=== PATIENT | female | born 1960 | race Caucasian/White ===

== ENCOUNTER 2022-11-01 16:40 | Inpatient (IN) | payer OTHER ==
[~2022-11-01] VITALS: Ht 177.8 cm; Wt 58.1 kg
[2022-11-01] MEDS ORDERED: ONDANSETRON 4 MG/2 ML VIAL IV ONE (17:15)
[2022-11-01] MEDS ORDERED: IV NORMAL SALINE 1000 ML BAG IV ONE (17:15)
[2022-11-01] MEDS ORDERED: MORPHINE SULFATE 2 MG/1 ML DISP.SYRIN IV ONE (17:15)
[2022-11-01] MEDS ORDERED: ONDANSETRON 4 MG/2 ML VIAL ONE (17:35)
[2022-11-01] MEDS ORDERED: MORPHINE SULFATE 4 MG/1 ML DISP.SYRIN ONE (17:35)
[2022-11-01 17:38] LABS: HEMATOCRIT 36.6 % (31.2-41.9); MEAN CORPUSCULAR HEMOGLOBIN 31.7 uug (24.7-32.8); MEAN CORPUSCULAR VOLUME 94.3 fL (75.5-95.3); PLATELET COUNT (AUTO) 250 K/uL (179-408)
[2022-11-01 17:46] LABS: CREATININE 0.6 mg/dL (0.6-1.3); POTASSIUM 3.4 mmol/L (3.5-5.1)
--- NOTE | 2022-11-01 17:46 | NUR ---
PT IS IN ROOM #1A. DR MAO EVALUATED THE PT.
--- NOTE | 2022-11-01 20:37 | NUR ---
Called orthopedic vp information technology Dr. Charles waiting vp information technology back.
--- NOTE | 2022-11-01 20:58 | NUR ---
Dr. Mclaughlin on panel call with Kelly HAMPTON. Pending admission.
--- NOTE | 2022-11-01 21:00 | NUR ---
Upon skin assessment noted dry skin with scabbing. Per patient, she has hx of eczema.
--- NOTE | 2022-11-01 22:18 | NUR ---
Called Dr. Charles for ortho consult, awaiting call back.
[2022-11-01] MEDS ORDERED: HYDROCODONE/APAP 5-325MG TABLET PO PRN (22:30)
[2022-11-01] MEDS ORDERED: REMEDY ESSENTIAL ZINC PASTE 113 GM TP PRN (22:30)
[2022-11-01] MEDS ORDERED: ONDANSETRON 4 MG/2 ML VIAL IV PRN (22:30)
[2022-11-01] MEDS ORDERED: MAGNESIUM HYDROXIDE 30 ML LIQUID UDC PO PRN (22:30)
[2022-11-01] MEDS ORDERED: IV D5 1/2 NS 1000 ML 1,000 ML IV PRN (22:30)
--- NOTE | 2022-11-01 22:58 | NUR ---
Called Dr. Charles for ortho consult, awaiting call back.
[2022-11-02] VITALS (11 sets, daily range): BP systolic 104–143; BP diastolic 38–59
--- NOTE | 2022-11-02 00:41 | NUR ---
Report given to Bruno GOOD.
--- NOTE | 2022-11-02 00:53 | NUR ---
Patient had large void in bedpan
--- NOTE | 2022-11-02 01:08 | NUR ---
Dr. Mclaughlin speaking with Dr. Charles for ortho consult.
--- NOTE | 2022-11-02 01:11 | NUR ---
Patient taken to third floor room 305 via gurney with personal belongings. Patient in stable condition, no signs of distress. Will RN aware of patients arrival.
--- NOTE | 2022-11-02 01:15 | NUR ---
Admitted patient in med surg floor under the care of Ale Mendoza [employer], patient alert oriented, no sob no chest pain, s/p fall at work place, dx of right hip Fx. For ortho consult, patient has right hip bruise from the fall, and left major skin disorder (ezcema) per patient. complain 9/10 pain, will medicate for pain. cont to monitor.
[2022-11-02] MEDS: MORPHINE SULFATE 2 MG/1 ML DISP.SYRIN IV PRN ×2 (01:29→09:48)
[2022-11-02] MEDS ORDERED: CEFTRIAXONE 1 G VIAL ONE (01:54)
[2022-11-02] MEDS ORDERED: CEFTRIAXONE /D5W 50ML IVPB **ER PYXIS IV ONE (01:55)
[2022-11-02] MEDS: CEFTRIAXONE 1 G in IV DEXTROSE 5% 50 ML IV SCH ×2 (02:01→20:52)
[2022-11-02 05:52] LABS: HEMATOCRIT 31.9 % (31.2-41.9); MEAN CORPUSCULAR HEMOGLOBIN 32.5 uug (24.7-32.8); MEAN CORPUSCULAR VOLUME 95.7 fL (75.5-95.3); PLATELET COUNT (AUTO) 216 K/uL (179-408)
[2022-11-02 06:01] LABS: CARBON DIOXIDE 28 mmol/L (21-32); CHLORIDE 108 mmol/L (98-107); CREATININE 0.4 mg/dL (0.6-1.3); GLUCOSE 104 mg/dL (74-106); MAGNESIUM 1.8 mg/dL (1.8-2.4); PHOSPHOROUS 2.7 mg/dL (2.5-4.9); POTASSIUM 3.2 mmol/L (3.5-5.1); UREA NITROGEN, BLOOD 8 mg/dL (7-18)
[2022-11-02 06:22] LABS: THYROID STIMULATING HORMONE 2.122 mIU/mL (0.358-3.740)
[2022-11-02] MEDS: PANTOPRAZOLE SODIUM 40 MG VIAL IV SCH (09:37)
[2022-11-02] MEDS ORDERED: POTASSIUM CHLORIDE 50 ML IV SCH (12:30)
[2022-11-02] MEDS ORDERED: VANCOMYCIN 1000 MG VIAL ONE (12:38)
[2022-11-02] MEDS ORDERED: POTASSIUM CHLORIDE 20 MEQ TAB.PRT.SR PO ONE (13:00)
[2022-11-02] MEDS ORDERED: TRANEXAMIC ACID 1,000 MG/10 ML VIAL ONE ×2 (13:21→14:02)
[2022-11-02] MEDS ORDERED: HYDROMORPHONE 2 MG/1 ML DISP.SYRIN ONE (13:29)
[2022-11-02] MEDS ORDERED: BUPIVACAINE PF 0.5% 30 ML VIAL ONE (13:29)
[2022-11-02] MEDS ORDERED: KETAMINE HCL 200 MG/20 ML VIAL ONE (13:29)
[2022-11-02] MEDS ORDERED: FAMOTIDINE. 20 MG/2 ML VIAL IV ONE (13:30)
[2022-11-02] MEDS ORDERED: ROCURONIUM BROMIDE 50 MG/5 ML VIAL ONE (13:30)
[2022-11-02] MEDS ORDERED: POTASSIUM CHLORIDE 10 MEQ/50 ML ONE (13:47)
[2022-11-02] MEDS ORDERED: PIGGYBACK ONE (13:47)
[2022-11-02] MEDS ORDERED: CEFAZOLIN 1 G VIAL ONE (13:47)
[2022-11-02] MEDS ORDERED: GLYCOPYRROLATE 0.2 MG/ML VIAL ONE (13:47)
[2022-11-02] MEDS ORDERED: ONDANSETRON 4 MG/2 ML VIAL ONE (13:47)
[2022-11-02] MEDS ORDERED: KETOROLAC TROMETHAMINE 30 MG INJ ONE (13:47)
[2022-11-02] MEDS ORDERED: DEXAMETHASONE SOD PHOSPHATE 4 MG INJ ONE (13:47)
[2022-11-02] MEDS ORDERED: PROPOFOL 200 MG/20 ML BOTTLE ONE (13:47)
[2022-11-02] MEDS ORDERED: LIDOCAINE-MPF 2% 5 ML VIAL ONE (13:47)
[2022-11-02] MEDS ORDERED: MAGNESIUM SULFATE/D5W 100 ML ONE ×2 (13:52→14:02)
[2022-11-02] MEDS ORDERED: MORPHINE SULFATE 4 MG/1 ML DISP.SYRIN IV PRN (16:15)
[2022-11-02] MEDS: POTASSIUM CHLORIDE 20 MEQ in IV D5 1/2 NS 1000 ML 1,000 ML IV PRN (18:32)
--- NOTE | 2022-11-02 20:13 | NUR ---
RN RECEIVED REPORT FROM FLORENTINO BERGMAN, FEATHER CURLING MACHINE OPERATOR. PATIENT IS ALERT AND ORIENTED X4 AND VITAL SIGNS STABLE. PATIENT TOLERATES PO MEDICATIONS AND DIET WELL. PATIENT HAD COMPLAINT OF PAIN. RN GAVE PAIN MEDICATIONS ORDERED. PATIENT AWARE OF SURGERY. CONSENT FORM SIGNED PRIOR TO SURGERY. RN GAVE REPORT TO FLORENTINO MINA, IN SURGERY. ALL QUESTIONS ANSWERED. RN STARTED POTASSIUM CHLORIDE ON THE FLOOR AND CONTINUED THROUGH SURGERY. PATIENT TRANSFERRED TO SURGERY. PATIENT RETURNED FROM PACU. RN RECEIVED REPORT FROM FLORENTINO LIZARRAGA, RECOVERY. PATIENT VITAL SIGNS STABLE. PATIENT IS ALERT AND ORIENTED X4. FOLLOW MD ORDERS RECEIVED. PROVIDED ICE CHIPS. PATIENT TOLERATES WELL. PROVIDED PO FLUIDS. TOLERATES WELL. NO N/V. PATIENT ATE DINNER REGULAR DIET. TOLERATES WELL. NO N/V. VITALS SIGNS TAKEN POLICY. PATIENT'S FAMILY VISITED. NO ACUTE DISTRESS NOTED. PATIENT EXPRESSED 8/10 PAIN. RN GAVE PAIN MEDICATIONS ORDERED. ALL NEEDS MET AT THIS TIME. RN ENDORSED CONTINUATION OF CARE TO FLORENTINO CAAL, FOR THE CONTINUATION OF CARE.
--- NOTE | 2022-11-02 23:13 | NUR ---
Patient is S/P right intramedullary nailing anamaria and dressing to site intact no sign of bleeding. Patient appears to be comfortable no c/o pain at this time.
[2022-11-03] MEDS: HYDROCODONE/APAP 10-325 MG TABLET PO PRN ×5 (03:12→20:37)
--- NOTE | 2022-11-03 03:15 | NUR ---
Patient medicated x 1 this shift for c/o right hip pain. Taft 10/325mg tablet given as per order with good effect.
[2022-11-03 04:00] VITALS: BP 101/57
[2022-11-03] MEDS: PANTOPRAZOLE SODIUM 40 MG VIAL IV SCH (08:47)
[2022-11-03] MEDS: POTASSIUM CHLORIDE 20 MEQ in IV D5 1/2 NS 1000 ML 1,000 ML IV PRN (08:58)
[2022-11-03 12:00] VITALS: BP 108/46
[2022-11-03 14:53] VITALS: BP 104/50
[2022-11-03] MEDS: ACETAMINOPHEN 325 MG TABLET PO PRN (16:10)
[2022-11-03 20:00] VITALS: BP 101/37
--- NOTE | 2022-11-03 20:00 | NUR ---
Received patient in bed, alert oriented, continent uses bed phelan for bladder elimination, right hip dressing intact, no bleeding, with swelling, patient right leg warm to touch, still has pain on surgical site, will medicate for pain as ordered, no sob no chest pain, no coughing. cont to monitor.
[2022-11-03] MEDS: CEFTRIAXONE 1 G in IV DEXTROSE 5% 50 ML IV SCH (20:42)
[2022-11-04] MEDS: POTASSIUM CHLORIDE 20 MEQ in IV D5 1/2 NS 1000 ML 1,000 ML IV PRN (01:47)
[2022-11-04] MEDS: ACETAMINOPHEN 325 MG TABLET PO PRN ×2 (01:48→08:58)
--- NOTE | 2022-11-04 03:25 | NUR ---
Patient asleep but arousable, pain meds given was effective, no further complain of pain, cont to monitor.
[2022-11-04 06:29] VITALS: BP 103/41
[2022-11-04] MEDS ORDERED: PANTOPRAZOLE SODIUM 40 MG TABLET.DR PO SCH (07:00)
[2022-11-04 07:03] LABS: MEAN CORPUSCULAR HEMOGLOBIN 32.2 uug (24.7-32.8); PLATELET COUNT (AUTO) 238 K/uL (179-408)
[2022-11-04 07:14] LABS: CREATININE 0.5 mg/dL (0.6-1.3); MAGNESIUM 1.9 mg/dL (1.8-2.4); PHOSPHOROUS 3.5 mg/dL (2.5-4.9)
--- NOTE | 2022-11-04 08:58 | NUR ---
AWAKE ALERT AND ORIENTED STATED HAS A HEADACHE MEDICATED ORDERED ON ROOM AIR WITH SATS AT 97-98 PERCENT AT THIS TIME RIGHT HIP S/P IM NAILING IS INTACT WITH NO DRAINAGE CALL LIGHT AND PERSONAL BELONGINGS ARE WITHIN EASY REACH AT THIS TIME WILL CONTINUE TO OBSERVE.
[2022-11-04 11:30] VITALS: BP 118/49
[2022-11-04] MEDS: HYDROCODONE/APAP 10-325 MG TABLET PO PRN ×3 (11:37→23:58)
--- NOTE | 2022-11-04 11:37 | NUR ---
PATIENT IS ALERT AND ORIENTED ON ROOM AIR WITH NO SHORTNESS OF BREATH AT THIS TIME STATED C/O RIGHT HIP PAIN MEDICATED WITH NORCO ORDERED RIGHT HIP INCISION IS INTACT WITH NO DRAINAGE AT THIS TIME MADE COMFORTABLE CALL LIGHT AND AND PERSONAL BELONGINGS ARE WITHIN EASY REACH WILL CONTINUE TO OBSERVE.
--- NOTE | 2022-11-04 12:51 | NUR ---
D/C PLANNING TODAY TO ACUTE REHAB UNIT TO CONTINUE WITH PHYSICAL THERAPY ORDERED.
[2022-11-04 15:43] VITALS: BP 119/41
--- NOTE | 2022-11-04 18:17 | NUR ---
STILL NO DISCHARGE ORDERS NOTED BUT PER ROBERT PATIENT IS ALREADY APPROAVED SO I CALLED AND SENT A MESSAGE TO DR LEEANN ESPARZA RE NEED DISCHARGE ORDER NO ORDERS AT THIS TIME WILL ENDORSE.
[2022-11-04 20:00] VITALS: BP 116/47
[2022-11-04] MEDS ORDERED: PANT40TA49 PO (23:49)
[2022-11-04] MEDS ORDERED: MAGN400O6 PO (23:49)
[2022-11-04] MEDS ORDERED: HYDR-3980 PO (23:49)
[2022-11-04] MEDS ORDERED: ONDA4VIA23 IV (23:49)
[2022-11-05 04:00] VITALS: BP 122/41
== END 2022-11-05 00:28 | DRG 482 ==
LOC: ER 16:42 → MEDSURG3 21:55
PROVIDERS: ADMIT Registered Nurse; ATTEND Registered Nurse
PROC: 0QS636Z Reposition Right Upper Femur with Intramedullary Internal Fixation Device, Percutaneous Approach (ICD-10-PCS; principal; 2022-11-02)
DX: S72.141A Displaced intertrochanteric fracture of right femur, initial encounter for closed fracture (principal); W01.0XXA Fall on same level from slipping, tripping and stumbling without subsequent striking against object, initial encounter; Y93.01 Activity, walking, marching and hiking; Y92.59 Other trade areas as the place of occurrence of the external cause; Y99.0 Civilian activity done for income or pay; F17.210 Nicotine dependence, cigarettes, uncomplicated; K59.00 Constipation, unspecified
CPT/HCPCS: 36415; 71045; 72170; 73502; 73503; 83735; 84100; 84443; 85025; 85730; 93005; 93307; A4649; A4663; C1713; C9113; G0378; J0690; J0696; J1100; J1170; J1885; J2270; J2405; J3370; J3475; J3480; J3490; J7040

== ENCOUNTER 2022-11-05 00:33 | Inpatient (IN) | payer OTHER ==
[~2022-11-05] VITALS: Ht 177.8 cm; Wt 58.1 kg
--- NOTE | 2022-11-05 | NUR ---
Obtained discharge/transfer to ARU order from Dr Bennett at this time. Routine discharge/admission care done. Plan of care initiated.
[~2022-11-05 00:33] MED LIST: HYDR-3980 PO; MAGN400O6 PO; ONDA4VIA23 IV; PANT40TA49 PO
[2022-11-05 01:05] VITALS: BP 116/67
[2022-11-05 04:00] VITALS: BP 122/41
--- NOTE | 2022-11-05 07:16 | NUR ---
Slept well. No further complaint presented after admission to ARU. All needs attended and met. Continue care as planned.
[2022-11-05 07:56] VITALS: BP 119/69
[2022-11-05] MEDS ORDERED: HYDROCODONE/APAP 10-325 MG TABLET PO ONE (08:30)
[2022-11-05] MEDS: REMEDY ESSENTIAL ZINC PASTE 113 GM TOP SCH ×2 (09:20→20:12)
--- NOTE | 2022-11-05 12:54 | NUR ---
WOUND CARE CONSULT: PT DENIES NEED FOR SKIN ASSESSMENT. WILL SEE PRN.
[2022-11-05] MEDS: HYDROCODONE/APAP 10-325 MG TABLET PO PRN ×2 (15:42→20:12)
[2022-11-05 15:50] VITALS: BP 116/41
[2022-11-05 20:00] VITALS: BP 106/42
[2022-11-05] MEDS: DOCUSATE SODIUM 100 MG CAPSULE PO SCH (20:11)
[2022-11-06 05:34] VITALS: BP 110/52
[2022-11-06] MEDS: PANTOPRAZOLE SODIUM 40 MG TABLET.DR PO SCH (06:24)
[2022-11-06 08:00] VITALS: BP 107/36
[2022-11-06] MEDS: MULTIVITAMINS,THERAPEUTIC TABLET PO SCH (08:23)
[2022-11-06] MEDS: HYDROCODONE/APAP 10-325 MG TABLET PO PRN ×4 (08:23→23:20)
[2022-11-06] MEDS: REMEDY ESSENTIAL ZINC PASTE 113 GM TOP SCH ×2 (08:24→20:18)
--- NOTE | 2022-11-06 15:43 | NUR ---
INTERDISCIPLINARY TEAM CONFERENCE
[2022-11-06 15:45] VITALS: BP 112/45
--- NOTE | 2022-11-06 19:24 | NUR ---
PATIENT ALERT AND ORIENTED, VERBALIZES NEEDS AND FOLLOWS DIRECTIONS. OOB DURING SHIFT. SITTING AT BEDSIDE AND DOWN TO REHAB FOR PT/OT SKILLED SERVICES. PATIENT CALE. THERAPY WELL AND ACTIVELY ABLE TO PARTICIPATE IN THERAPY. CONTINENT OF BOTH AND WITH BRP, ASSISTED TO THE RESTROOM NEEDED. PATIENT EATING AND DRINKING WELL, NO C/O GI DISCOMFORT. MEDICATED PRN FOR PAIN BASED ON PAIN LEVEL NEEDS ORDERED BY MD WITH HELP. ASSIST NEEDED, NEEDS ANTICIPATED AND MET THROUGH OUT THE SHIFT. NO MAC FROM BASELINE, REPORT GIVEN TO NIGHT RELIEVING RN.
[2022-11-06 20:00] VITALS: BP 108/49
[2022-11-06] MEDS: DOCUSATE SODIUM 100 MG CAPSULE PO SCH (20:18)
[2022-11-07] MEDS: HYDROCODONE/APAP 10-325 MG TABLET PO PRN ×5 (03:59→22:56)
[2022-11-07 04:31] VITALS: BP 104/41
[2022-11-07] MEDS: PANTOPRAZOLE SODIUM 40 MG TABLET.DR PO SCH (06:03)
[2022-11-07 07:45] VITALS: BP 118/55
[2022-11-07] MEDS: MULTIVITAMINS,THERAPEUTIC TABLET PO SCH (08:04)
[2022-11-07] MEDS: REMEDY ESSENTIAL ZINC PASTE 113 GM TOP SCH ×2 (08:04→20:25)
--- NOTE | 2022-11-07 15:15 | NUR ---
dc orders received noted and carried out.dc heplock per orders,for rn report called the facility 3 times they pickup the phone and put it on hold no body ans after that ,per case specialist pt [facility] .pt left the facility via ambulances in stable condition Addendum: 11/07/22 at 1734 by NIEVES DONALDSON LVN wrong pt charting
--- NOTE | 2022-11-07 15:20 | NUR ---
pt is resting in her room .call light with in reach all the needs met at this time we will continue to monitor
[2022-11-07 15:56] VITALS: BP 109/49
[2022-11-07 20:00] VITALS: BP 121/38
[2022-11-07] MEDS: DOCUSATE SODIUM 100 MG CAPSULE PO SCH (20:20)
[2022-11-07] MEDS: MAGNESIUM HYDROXIDE 30 ML LIQUID UDC PO PRN (20:22)
[2022-11-08] VITALS: BP 94/42
--- NOTE | 2022-11-08 03:47 | NUR ---
AAOx4 S/P right hip IM nailing (11/02) by Dr Charles. Right hip dressing clean dry and intact. VSS Needs attended. Fall precautions maintained. Pain meds given as needed, with relief noted. No acute distress noted. Will monitor patient. Siderails up for safety.
[2022-11-08 04:00] VITALS: BP 103/48
[2022-11-08] MEDS: HYDROCODONE/APAP 10-325 MG TABLET PO PRN ×5 (05:39→23:27)
[2022-11-08] MEDS: PANTOPRAZOLE SODIUM 40 MG TABLET.DR PO SCH (06:03)
--- NOTE | 2022-11-08 08:56 | NUR ---
INDIVIDUALIZED PLAN OF CARE
[2022-11-08] MEDS: MULTIVITAMINS,THERAPEUTIC TABLET PO SCH (09:46)
[2022-11-08] MEDS: REMEDY ESSENTIAL ZINC PASTE 113 GM TOP SCH ×2 (09:46→20:26)
[2022-11-08] MEDS: MAGNESIUM HYDROXIDE 30 ML LIQUID UDC PO PRN (09:47)
[2022-11-08] MEDS ORDERED: BISACODYL 10 MG SUPP.RECT RC PRN (13:30)
--- NOTE | 2022-11-08 15:03 | NUR ---
INDIVIDUALIZED PLAN OF CARE
[2022-11-08 16:05] VITALS: BP 101/27
--- NOTE | 2022-11-08 19:31 | NUR ---
NSG:Pt received lying in bed. alert and oriented x4, S/P right hip IM nailing ON 11/02/[address] Charles. Right hip dressing c/d/i. no c/o pain or discomfort at this time. Fall precautions maintained. No acute distress noted. Will monitor patient. two Side rails up for safety. call light w/in reach.
[2022-11-08 20:00] VITALS: BP 116/53
--- NOTE | 2022-11-08 20:13 | NUR ---
RN RECEIVED REPORT FROM FLORENTINO PAGE, NOC SHIFT. PATIENT IS ALERT AND ORIENTED X4 AND VITAL SIGNS STABLE. PATIENT COMPLAINED OF PAIN. RN GAVE PAIN MEDICATIONS ORDERED. PATIENT TOLERATES PO MEDICATIONS AND DIET WELL. PATIENT PARTICIPATES WITH PHYSICAL AND OCCUPATIONAL THERAPY SCHEDULED. DRESSING CHANGED. PATIENT UNABLE TO MOVE HER BOWELS. RN GAVE MEDICATIONS ORDERED. PATIENT WAS ABLE TO MOVE HER BOWELS AFTER SUPPOSITORY INSERTION. NO ACUTE DISTRESS NOTED. ALL NEEDS MET AT THIS TIME. RN ENDORSED CONTINUATION OF CARE TO FLORENTINO MILTON, FOR THE CONTINUATION OF CARE.
[2022-11-08] MEDS: DOCUSATE SODIUM 100 MG CAPSULE PO SCH (20:26)
--- NOTE | 2022-11-09 01:40 | NUR ---
patient resting quietly in bed. call light w/in reach.
--- NOTE | 2022-11-09 03:47 | NUR ---
NSG: Remain calm and cooperative with meds and care. Right hip dressing clean dry and intact. VSS Needs attended. Fall precautions maintained. Pain meds given as needed, with relief noted. No acute distress noted.call light w/in reach
[2022-11-09 04:00] VITALS: BP 101/55
[2022-11-09] MEDS: HYDROCODONE/APAP 10-325 MG TABLET PO PRN ×5 (04:33→20:51)
[2022-11-09] MEDS: PANTOPRAZOLE SODIUM 40 MG TABLET.DR PO SCH (06:04)
[2022-11-09 07:02] LABS: HEMATOCRIT 33.2 % (31.2-41.9); MEAN CORPUSCULAR HEMOGLOBIN 32.4 uug (24.7-32.8); MEAN CORPUSCULAR VOLUME 94.5 fL (75.5-95.3); PLATELET COUNT (AUTO) 326 K/uL (179-408)
[2022-11-09 07:45] VITALS: BP 97/39
[2022-11-09] MEDS: REMEDY ESSENTIAL ZINC PASTE 113 GM TOP SCH ×2 (08:42→20:52)
[2022-11-09] MEDS: MULTIVITAMINS,THERAPEUTIC TABLET PO SCH (08:42)
[2022-11-09 09:47] LABS: CREATININE 0.6 mg/dL (0.6-1.3); POTASSIUM 3.9 mmol/L (3.5-5.1)
[2022-11-09 09:48] LABS: BILIRUBIN,TOTAL 0.4 mg/dL (0.2-1.0); MAGNESIUM 2.3 mg/dL (1.8-2.4); PHOSPHOROUS 4.2 mg/dL (2.5-4.9); TOTAL PROTEIN, SERUM 6.7 g/dL (6.4-8.2)
[2022-11-09] MEDS: GLUCERNA SHAKE 237 ML CAN PO SCH (13:42)
[2022-11-09 16:14] VITALS: BP 108/48
--- NOTE | 2022-11-09 19:48 | NUR ---
RN RECEIVED REPORT FROM FLORENTINO MILTON, NOC SHIFT. PATIENT IS ALERT AND ORIENTED X4 AND VITAL SIGNS STABLE. PATIENT COMPLAINED OF PAIN. RN GAVE PAIN MEDICATIONS ORDERED. PATIENT TOLERATES PO MEDICATIONS AND DIET WELL. PATIENT PARTICIPATES WITH PHYSICAL AND OCCUPATIONAL THERAPY SCHEDULED. RN ENCOURAGES PATIENT TO DRINK PRUNE JUICE TO HELP WITH REGULAR BOWEL MOVEMENTS. NO ACUTE DISTRESS NOTED. ALL NEEDS MET AT THIS TIME. CALL LIGHT WITHIN REACH. RN ENDORSED CONTINUATION OF CARE TO FLORENTINO WORLEY, FOR THE CONTINUATION OF CARE.
[2022-11-09 20:18] VITALS: BP 116/48
[2022-11-09] MEDS: DOCUSATE SODIUM 100 MG CAPSULE PO SCH (20:51)
[2022-11-10] MEDS: HYDROCODONE/APAP 10-325 MG TABLET PO PRN ×5 (01:07→19:57)
[2022-11-10] MEDS: PANTOPRAZOLE SODIUM 40 MG TABLET.DR PO SCH (06:27)
[2022-11-10] MEDS: MULTIVITAMINS,THERAPEUTIC TABLET PO SCH (08:14)
[2022-11-10] MEDS: GLUCERNA SHAKE 237 ML CAN PO SCH (08:15)
[2022-11-10] MEDS: REMEDY ESSENTIAL ZINC PASTE 113 GM TOP SCH ×2 (08:15→21:00)
[2022-11-10 08:46] VITALS: BP 98/43
[2022-11-10 12:00] VITALS: BP 116/65
[2022-11-10 20:00] VITALS: BP 103/40
[2022-11-10] MEDS: DOCUSATE SODIUM 100 MG CAPSULE PO SCH (21:00)
--- NOTE | 2022-11-10 21:00 | NUR ---
Patient refused Colace tonight, stating she does not need it despite explaining the risk and benefits.
[2022-11-11] MEDS: HYDROCODONE/APAP 10-325 MG TABLET PO PRN ×5 (00:13→19:50)
[2022-11-11 05:52] VITALS: BP 116/55
--- NOTE | 2022-11-11 05:58 | NUR ---
Shift End Report: Medicated 3x for pain the whole night. No further complaint presented after. All needs attended. Non-pharmaceutical techniques suggested to patient to relieve pain/discomforts like repositioning, deep breathing exercises and relaxation technique, able to return demonstration. Continue current rehab plan of care. In no apparent respiratory distress.
[2022-11-11] MEDS: PANTOPRAZOLE SODIUM 40 MG TABLET.DR PO SCH (06:24)
[2022-11-11 08:39] VITALS: BP 105/44
[2022-11-11] MEDS: MULTIVITAMINS,THERAPEUTIC TABLET PO SCH (08:43)
[2022-11-11] MEDS: GLUCERNA SHAKE 237 ML CAN PO SCH (08:46)
[2022-11-11] MEDS: REMEDY ESSENTIAL ZINC PASTE 113 GM TOP SCH ×2 (11:00→21:04)
[2022-11-11 15:34] VITALS: BP 119/45
[2022-11-11] MEDS: DOCUSATE SODIUM 100 MG CAPSULE PO SCH (19:50)
[2022-11-11 20:00] VITALS: BP 111/57
[2022-11-12] MEDS: HYDROCODONE/APAP 10-325 MG TABLET PO PRN ×5 (00:26→20:11)
[2022-11-12 04:00] VITALS: BP 104/37
[2022-11-12] MEDS: PANTOPRAZOLE SODIUM 40 MG TABLET.DR PO SCH (06:19)
[2022-11-12 08:38] VITALS: BP 100/46
[2022-11-12] MEDS: MULTIVITAMINS,THERAPEUTIC TABLET PO SCH (08:51)
[2022-11-12] MEDS: GLUCERNA SHAKE 237 ML CAN PO SCH (08:52)
[2022-11-12] MEDS: REMEDY ESSENTIAL ZINC PASTE 113 GM TOP SCH ×2 (08:52→20:12)
[2022-11-12 16:33] VITALS: BP 105/44
[2022-11-12] MEDS: DOCUSATE SODIUM 100 MG CAPSULE PO SCH (20:11)
[2022-11-12 20:36] VITALS: BP 115/56
[2022-11-13] MEDS: HYDROCODONE/APAP 10-325 MG TABLET PO PRN ×5 (00:25→20:47)
[2022-11-13 05:52] VITALS: BP 103/56
[2022-11-13] MEDS: PANTOPRAZOLE SODIUM 40 MG TABLET.DR PO SCH (06:05)
--- NOTE | 2022-11-13 08:00 | NUR ---
Received patient lying in bed awake, alert and oriented. No complain, not in distress. Vital signs stable Needs attended
[2022-11-13] MEDS: GLUCERNA SHAKE 237 ML CAN PO SCH (08:44)
[2022-11-13] MEDS: MULTIVITAMINS,THERAPEUTIC TABLET PO SCH (08:44)
[2022-11-13] MEDS: REMEDY ESSENTIAL ZINC PASTE 113 GM TOP SCH ×2 (08:45→20:48)
--- NOTE | 2022-11-13 09:00 | NUR ---
Seen by physical therapist, ambulated using a walker. 0943 - patient complaining of pain, Rescue tab given as needed. Observed accordingly
[2022-11-13 10:18] VITALS: BP 125/55
--- NOTE | 2022-11-13 14:08 | NUR ---
Seen patient in bed, comfortably resting. No acute changes from morning shift
--- NOTE | 2022-11-13 14:12 | NUR ---
INTERDISCIPLINARY TEAM CONFERENCE
[2022-11-13 16:01] VITALS: BP 103/53
[2022-11-13 20:00] VITALS: BP 124/32
[2022-11-13] MEDS: DOCUSATE SODIUM 100 MG CAPSULE PO SCH (20:47)
[2022-11-14] MEDS: HYDROCODONE/APAP 10-325 MG TABLET PO PRN ×6 (00:55→22:57)
[2022-11-14 04:00] VITALS: BP 106/49
[2022-11-14] MEDS: PANTOPRAZOLE SODIUM 40 MG TABLET.DR PO SCH (06:00)
--- NOTE | 2022-11-14 06:10 | NUR ---
Medicated for pain 3 times as needed and as ordered with help. Ambulatory to the bathroom with FWW. All needs attended and mety. No significant event reported. Continue current rehab plan of care.
[2022-11-14 07:55] VITALS: BP 113/50
--- NOTE | 2022-11-14 08:00 | NUR ---
Pt is A & O x4. Pt was awake in bed. Stated slight discomfort in her leg, pain 3 out of 10 on pain scale. Pt stated she is aware pain meds are not due yet. Asked about physical therapy for this morning. Pt has no IV in place. Vital signs were taken and are WNL for pt.
[2022-11-14] MEDS: MULTIVITAMINS,THERAPEUTIC TABLET PO SCH (08:48)
[2022-11-14] MEDS: REMEDY ESSENTIAL ZINC PASTE 113 GM TOP SCH ×2 (08:49→20:25)
[2022-11-14] MEDS: GLUCERNA SHAKE 237 ML CAN PO SCH (08:49)
[2022-11-14 15:40] VITALS: BP 102/40
[2022-11-14 20:00] VITALS: BP 106/31
[2022-11-14] MEDS: DOCUSATE SODIUM 100 MG CAPSULE PO SCH (20:25)
[2022-11-15] MEDS: HYDROCODONE/APAP 10-325 MG TABLET PO PRN ×5 (03:30→23:43)
[2022-11-15] MEDS: MAGNESIUM HYDROXIDE 30 ML LIQUID UDC PO PRN (03:37)
[2022-11-15 04:00] VITALS: BP 118/49
--- NOTE | 2022-11-15 05:52 | NUR ---
AOx4. Ambulatory with FWW with minimal assist. Administered [place] 2x for pain with relief. No acute respiratory distress noted. All needs attended and met. Call light within reach. Safety measures maintained.
[2022-11-15] MEDS: PANTOPRAZOLE SODIUM 40 MG TABLET.DR PO SCH (06:03)
[2022-11-15 08:01] VITALS: BP 117/45
[2022-11-15] MEDS: MULTIVITAMINS,THERAPEUTIC TABLET PO SCH (08:28)
[2022-11-15] MEDS: GLUCERNA SHAKE 237 ML CAN PO SCH (08:29)
[2022-11-15] MEDS: REMEDY ESSENTIAL ZINC PASTE 113 GM TOP SCH ×2 (08:30→20:12)
[2022-11-15 15:27] VITALS: BP 108/44
--- NOTE | 2022-11-15 19:30 | NUR ---
Received patient lying in bed awake, alert and oriented. No complain, not in distress. Vital signs stable Needs attended call light with in reach
[2022-11-15] MEDS: DOCUSATE SODIUM 100 MG CAPSULE PO SCH (20:12)
[2022-11-15 20:30] VITALS: BP 96/37
--- NOTE | 2022-11-15 22:57 | NUR ---
patient resting quietly in bed. call light w/in reach.
[2022-11-16 04:00] VITALS: BP 118/55
[2022-11-16] MEDS: HYDROCODONE/APAP 10-325 MG TABLET PO PRN ×5 (05:02→22:10)
[2022-11-16] MEDS: PANTOPRAZOLE SODIUM 40 MG TABLET.DR PO SCH (06:08)
[2022-11-16 08:00] VITALS: BP 98/48
[2022-11-16] MEDS: REMEDY ESSENTIAL ZINC PASTE 113 GM TOP SCH ×2 (08:22→20:03)
[2022-11-16] MEDS: GLUCERNA SHAKE 237 ML CAN PO SCH (08:22)
[2022-11-16] MEDS: MULTIVITAMINS,THERAPEUTIC TABLET PO SCH (08:22)
[2022-11-16 15:58] VITALS: BP 110/38
--- NOTE | 2022-11-16 19:20 | NUR ---
Received patient sitting in the chair alert and oriented. No complain of pain noted at this time , not in distress. Vital signs stable Needs attended family at bed side call light with in reach
[2022-11-16] MEDS: DOCUSATE SODIUM 100 MG CAPSULE PO SCH (20:03)
[2022-11-16 20:17] VITALS: BP 103/45
--- NOTE | 2022-11-17 00:32 | NUR ---
Patient resting in bed comfortably. no s/s of sob or pain noted.
[2022-11-17] MEDS: HYDROCODONE/APAP 10-325 MG TABLET PO PRN ×4 (03:46→20:08)
[2022-11-17 04:17] VITALS: BP 101/52
[2022-11-17] MEDS: PANTOPRAZOLE SODIUM 40 MG TABLET.DR PO SCH (06:01)
--- NOTE | 2022-11-17 06:11 | NUR ---
Shift End Report: Medicated 2x for pain the whole night. No further complaint presented after. All needs attended. Continue current rehab plan of care. In no apparent respiratory distress.
[2022-11-17 08:00] VITALS: BP 103/39
[2022-11-17] MEDS: MULTIVITAMINS,THERAPEUTIC TABLET PO SCH (08:39)
[2022-11-17] MEDS: GLUCERNA SHAKE 237 ML CAN PO SCH (08:40)
[2022-11-17] MEDS: REMEDY ESSENTIAL ZINC PASTE 113 GM TOP SCH ×2 (08:41→20:24)
[2022-11-17 09:04] VITALS: BP 101/39
[2022-11-17 15:48] VITALS: BP 99/48
[2022-11-17] MEDS: DOCUSATE SODIUM 100 MG CAPSULE PO SCH (20:09)
[2022-11-17 20:25] VITALS: BP 102/57
[2022-11-18] MEDS: HYDROCODONE/APAP 10-325 MG TABLET PO PRN ×3 (03:17→12:37)
[2022-11-18 05:00] VITALS: BP 101/47
[2022-11-18] MEDS: PANTOPRAZOLE SODIUM 40 MG TABLET.DR PO SCH (06:21)
[2022-11-18 07:31] VITALS: BP_SYST 101; BP_SYST 113; BP_DIAS 45; BP_DIAS 53
--- NOTE | 2022-11-18 07:38 | NUR ---
Rec'd patient in bed , awake, A/Ox4, able to verblize4 her needs and follow directions, denies pain at this time; patient stating to be happy as "I am finally going home." On R/A, no respiratory distress noted. Skin W/D to the touch, afebrile. Safety measure in place and call light within reach. Will continue to monitor.
[2022-11-18] MEDS: MULTIVITAMINS,THERAPEUTIC TABLET PO SCH (08:23)
[2022-11-18] MEDS: REMEDY ESSENTIAL ZINC PASTE 113 GM TOP SCH (08:24)
[2022-11-18] MEDS: GLUCERNA SHAKE 237 ML CAN PO SCH (08:24)
--- NOTE | 2022-11-18 09:23 | NUR ---
0900-Scheduled medications administered, no ASE noted. Patient continues eating her breakfast. Oral fluids taken well. 0920-Patient OOB with physical therapist for her therapy session, doing well, actively able to participate in therapy, using FWW. Fall precautions observed; safety precaution reminders provided.
--- NOTE | 2022-11-18 13:26 | NUR ---
1300-Patient ready for discharge. Education, DC paperwork provided. medication orders to follow, post RT hip IM nailing follow up coming up on 11/22/2022 @ 11:[address] Charles @ [id number] [facility], [facility] [id number], [place] [address] reminded. Patient A/Ox4, understands education provided and demonstrates verbal understanding. Patient all ready and just pending to be picked up by her father. 1330-Patient was picked up at this time via private car and her father (Malia) assisted to he vehicle, FWW was borrowed as per DC planners instructions. Patient left in stable conditions, denies pain, VSS. No respiratory distress noted.
== END 2022-11-18 13:35 | disposition home health service (06) | DRG 561 ==
PROVIDERS: ADMIT Physical Medicine & Rehabilitation Pain Medicine; ATTEND Physical Medicine & Rehabilitation Pain Medicine
DX: S72.141D Displaced intertrochanteric fracture of right femur, subsequent encounter for closed fracture with routine healing (principal); W18.30XD Fall on same level, unspecified, subsequent encounter; F17.210 Nicotine dependence, cigarettes, uncomplicated; I27.20 Pulmonary hypertension, unspecified; J44.9 Chronic obstructive pulmonary disease, unspecified; I34.0 Nonrheumatic mitral (valve) insufficiency; D64.9 Anemia, unspecified
CPT/HCPCS: 36415; 73501; 83735; 84100; 85025; 97535-GO-CO; A4663; A6213

== ENCOUNTER 2024-09-07 10:30 | Inpatient (IN) | payer MEDICAID, OTHER ==
[~2024-09-07] VITALS: Ht 175.3 cm; Wt 59.6 kg
[2024-09-07] MEDS ORDERED: ONDANSETRON 4 MG/2 ML VIAL ONE ×2 (10:55→17:02)
[2024-09-07] MEDS ORDERED: MORPHINE SULFATE 4 MG/1 ML DISP.SYRIN ONE ×2 (10:55→17:03)
[2024-09-07 11:00] LABS: BASOPHILS # (AUTO) 0.1 K/UL (0.0-0.2); BASOPHILS % (AUTO) 1.3 % (0.0-2.0); EOSINOPHILS # (AUTO) 0.3 K/uL (0.0-0.7); EOSINOPHILS % (AUTO) 3.7 % (0.0-7.0); HEMATOCRIT 37.3 % (31.2-41.9); HEMOGLOBIN 12.5 g/dL (10.9-14.3); LYMPHOCYTES # (AUTO) 1.5 K/uL (0.8-4.8); LYMPHOCYTES % (AUTO) 18.8 % (20.5-51.5); MEAN CORPUSCULAR HEMOGLOBIN 31.4 uug (24.7-32.8); MEAN CORPUSCULAR HGB CONC 34 g/dL (32.3-35.6); MEAN CORPUSCULAR VOLUME 93.1 fL (75.5-95.3); MONOCYTES # (AUTO) 0.8 K/uL (0.1-1.30); MONOCYTES % (AUTO) 9.2 % (0.0-11.0); NEUTROPHILS # (AUTO) 5.5 K/uL (1.8-8.9); PLATELET COUNT (AUTO) 217 K/uL (179-408); RED CELL DISTRIBUTION WIDTH 13.3 % (12.3-17.7); WHITE BLOOD COUNT (AUTO) 8.2 K/uL (3.8-11.8)
[2024-09-07] MEDS ORDERED: IBUP-1955 PO (11:01)
[2024-09-07] MEDS: IV NORMAL SALINE 1000 ML BAG IV ONE (11:06)
[2024-09-07] MEDS: ONDANSETRON 4 MG/2 ML VIAL IV ONE ×2 (11:07→17:15)
[2024-09-07] MEDS: MORPHINE SULFATE 4 MG/1 ML DISP.SYRIN IV ONE ×2 (11:07→17:15)
[2024-09-07 11:08] LABS: DIFFERENTIAL COMMENT 1
[2024-09-07 11:11] LABS: *BILIRUBIN,URIN NEGATIVE (NEGATIVE); *BLOOD, URINE NEGATIVE (NEGATIVE); *CLARITY,URINE CLEAR (CLEAR); *COLOR,URINE YELLOW (YELLOW); *KETONES,URINE NEGATIVE (NEGATIVE); *PROTEIN,URINE 3+ (NEGATIVE); *UROBILINOGEN,URINE 0.2 E.U./dl (NORMAL); LEUKOCYTE ESTERASE ,URINE NEGATIVE (NEGATIVE); NITRITE, URINE NEGATIVE (NEGATIVE); UGLUCOSE NEGATIVE (NEGATIVE)
[2024-09-07 11:13] LABS: CALCIUM 9.3 mg/dL (8.5-10.1); CREATININE 0.7 mg/dL (0.6-1.3); POTASSIUM 3.4 mmol/L (3.5-5.1)
[2024-09-07 11:17] LABS: BACTERIA,URINE FEW /HPF (NONE SEEN); SQUAMOUS EPITHELIAL CELL,UR FEW /HPF (NONE SEEN); URINE AMORPHOUS URATE FEW /HPF; WBC,URINE 0-3 /HPF (0-3)
[2024-09-07 11:19] LABS: ALBUMIN 3.5 g/dL (3.4-5.0); BILIRUBIN,DIRECT 0.3 mg/dL (0.0-0.2); BILIRUBIN,TOTAL 0.8 mg/dL (0.2-1.0)
[2024-09-07] MEDS ORDERED: IV NORMAL SALINE 250 ML IV ONE (13:41)
[2024-09-07] MEDS ORDERED: SWABABLE VALVE TRANSFER SET EA MC ONE (13:41)
[2024-09-07] MEDS ORDERED: IOHEXOL 300MG/ML 100 ML INFUS..BTL ONE (13:41)
[2024-09-07 18:37] VITALS: BP 105/47; TEMP 98.5; O2SAT 98
[2024-09-07] MEDS: ENOXAPARIN SODIUM 60 MG/0.6 ML DISP.SYRIN SQ ONE (18:43)
[2024-09-07] MEDS ORDERED: REMEDY ESSENTIAL ZINC PASTE 113 GM TP PRN (18:45)
[2024-09-07] MEDS ORDERED: MAGNESIUM HYDROXIDE 30 ML LIQUID UDC PO PRN (18:45)
[2024-09-07 19:00] VITALS: BP 116/46; TEMP 98.6; O2SAT 95
[2024-09-07] MEDS: IV NS 1000 ML 1,000 ML IV PRN (19:18)
[2024-09-07] MEDS: HYDROCODONE/APAP 5-325MG TABLET PO PRN (21:46)
[2024-09-08 04:54] VITALS: BP 101/40; TEMP 98.1; O2SAT 97
[2024-09-08 06:34] LABS: BASOPHILS # (AUTO) 0.1 K/UL (0.0-0.2); BASOPHILS % (AUTO) 1.3 % (0.0-2.0); EOSINOPHILS # (AUTO) 0.5 K/uL (0.0-0.7); EOSINOPHILS % (AUTO) 8.4 % (0.0-7.0); HEMATOCRIT 30.2 % (31.2-41.9); HEMOGLOBIN 10.5 g/dL (10.9-14.3); LYMPHOCYTES # (AUTO) 1.2 K/uL (0.8-4.8); LYMPHOCYTES % (AUTO) 20.8 % (20.5-51.5); MEAN CORPUSCULAR HEMOGLOBIN 32.1 uug (24.7-32.8); MEAN CORPUSCULAR HGB CONC 35 g/dL (32.3-35.6); MEAN CORPUSCULAR VOLUME 92.7 fL (75.5-95.3); MONOCYTES # (AUTO) 0.6 K/uL (0.1-1.30); MONOCYTES % (AUTO) 10.7 % (0.0-11.0); NEUTROPHILS # (AUTO) 3.5 K/uL (1.8-8.9); NEUTROPHILS % (AUTO) 58.8 % (38.5-71.5); PLATELET COUNT (AUTO) 157 K/uL (179-408); RED BLOOD CELL COUNT(AUTO) 3.26 MIL/uL (3.63-4.92); RED CELL DISTRIBUTION WIDTH 13.4 % (12.3-17.7); WHITE BLOOD COUNT (AUTO) 5.9 K/uL (3.8-11.8)
[2024-09-08 06:41] LABS: DIFFERENTIAL COMMENT 1
[2024-09-08 06:48] LABS: CREATININE 0.7 mg/dL (0.6-1.3); MAGNESIUM 1.7 mg/dL (1.8-2.4); PHOSPHOROUS 3.5 mg/dL (2.5-4.9); POTASSIUM 3.8 mmol/L (3.5-5.1)
[2024-09-08] MEDS: PANTOPRAZOLE SODIUM 40 MG TABLET.DR PO SCH (06:51)
[2024-09-08 06:52] LABS: THYROID STIMULATING HORMONE 2.444 mIU/mL (0.358-3.740)
[2024-09-08 08:11] LABS: CARCINOEMBRYONIC AG (CEA) 12.3 ng/mL (0.0-4.7)
[2024-09-08] MEDS: MAGNESIUM OXIDE 400 MG TABLET PO ONE (10:08)
[2024-09-08 11:01] VITALS: BP 119/57; TEMP 98.7; O2SAT 94
[2024-09-08] MEDS: ONDANSETRON 4 MG/2 ML VIAL IV PRN (11:29)
[2024-09-08 14:56] VITALS: BP 106/49; TEMP 98.4; O2SAT 94
[2024-09-08 18:50] LABS: IRON, SERUM 32 ug/dL (50-175)
[2024-09-08 19:17] LABS: FERRITIN 165 ng/mL (8-252)
[2024-09-08 19:59] VITALS: BP 109/44; TEMP 98.3; O2SAT 97
[2024-09-08 20:35] LABS: *RHEUMATOID FACTOR SCREEN NEGATIVE (NEGATIVE)
[2024-09-09 06:18] VITALS: BP 111/48; TEMP 98.2; O2SAT 93
[2024-09-09 07:04] LABS: CALCIUM 8.3 mg/dL (8.5-10.1); CREATININE 0.5 mg/dL (0.6-1.3); MAGNESIUM 1.7 mg/dL (1.8-2.4); POTASSIUM 3.7 mmol/L (3.5-5.1)
[2024-09-09 07:58] VITALS: BP 112/49; TEMP 97.8; O2SAT 96
[2024-09-09] MEDS: MAGNESIUM OXIDE 400 MG TABLET PO ONE (10:00)
[2024-09-09 11:56] VITALS: BP 93/43; TEMP 97.2; O2SAT 97
[2024-09-09 16:00] VITALS: BP 98/56; TEMP 97.6; O2SAT 97
[2024-09-09 16:31] LABS: BASOPHILS # (AUTO) 0.1 K/UL (0.0-0.2); BASOPHILS % (AUTO) 1.1 % (0.0-2.0); EOSINOPHILS # (AUTO) 0.5 K/uL (0.0-0.7); EOSINOPHILS % (AUTO) 5.3 % (0.0-7.0); HEMOGLOBIN 11.6 g/dL (10.9-14.3); LYMPHOCYTES # (AUTO) 1.3 K/uL (0.8-4.8); MEAN CORPUSCULAR HEMOGLOBIN 31.1 uug (24.7-32.8); MEAN CORPUSCULAR HGB CONC 33 g/dL (32.3-35.6); MEAN CORPUSCULAR VOLUME 93.5 fL (75.5-95.3); MONOCYTES # (AUTO) 0.8 K/uL (0.1-1.30); MONOCYTES % (AUTO) 9.3 % (0.0-11.0); NEUTROPHILS # (AUTO) 6.4 K/uL (1.8-8.9); NEUTROPHILS % (AUTO) 70.3 % (38.5-71.5); PLATELET COUNT (AUTO) 169 K/uL (179-408); RED BLOOD CELL COUNT(AUTO) 3.74 MIL/uL (3.63-4.92); RED CELL DISTRIBUTION WIDTH 13.4 % (12.3-17.7); WHITE BLOOD COUNT (AUTO) 9.1 K/uL (3.8-11.8)
[2024-09-09 18:30] VITALS: BP 106/51; TEMP 98.5; O2SAT 99
[2024-09-09] MEDS ORDERED: GADOTERATE MEGLUMINE 10 MMOL/20 ML VIAL IV ONE (19:54)
[2024-09-10 02:06] LABS: HEPATITIS B CORE AB, IgM Negative (Negative); HEPATITIS B CORE AB, TOTAL Negative (Negative); HEPATITIS B SURFACE AB, QUAL Non Reactive (.); HEPATITIS B SURFACE AG Negative (Negative); HEPATITIS C VIRUS ANTIBODY Non Reactive (Non Reactive)
[2024-09-10 04:50] VITALS: BP 122/53; TEMP 98.3; O2SAT 97
[2024-09-10 06:07] LABS: AFP, TUMOR MARKER 6.4 ng/mL (0.0-9.2)
[2024-09-10 06:57] LABS: BASOPHILS # (AUTO) 0.1 K/UL (0.0-0.2); BASOPHILS % (AUTO) 0.9 % (0.0-2.0); EOSINOPHILS # (AUTO) 0.5 K/uL (0.0-0.7); EOSINOPHILS % (AUTO) 6.7 % (0.0-7.0); HEMOGLOBIN 11.2 g/dL (10.9-14.3); LYMPHOCYTES # (AUTO) 0.9 K/uL (0.8-4.8); LYMPHOCYTES % (AUTO) 12.9 % (20.5-51.5); MEAN CORPUSCULAR HEMOGLOBIN 31.6 uug (24.7-32.8); MEAN CORPUSCULAR HGB CONC 34 g/dL (32.3-35.6); MEAN CORPUSCULAR VOLUME 93.1 fL (75.5-95.3); MONOCYTES # (AUTO) 0.6 K/uL (0.1-1.30); MONOCYTES % (AUTO) 9.5 % (0.0-11.0); NEUTROPHILS # (AUTO) 4.8 K/uL (1.8-8.9); PLATELET COUNT (AUTO) 153 K/uL (179-408); RED BLOOD CELL COUNT(AUTO) 3.54 MIL/uL (3.63-4.92); RED CELL DISTRIBUTION WIDTH 13.5 % (12.3-17.7); WHITE BLOOD COUNT (AUTO) 6.8 K/uL (3.8-11.8)
[2024-09-10 07:19] LABS: CALCIUM 8.8 mg/dL (8.5-10.1); CREATININE 0.6 mg/dL (0.6-1.3); MAGNESIUM 1.8 mg/dL (1.8-2.4); POTASSIUM 3.7 mmol/L (3.5-5.1)
[2024-09-10 07:26] LABS: DIFFERENTIAL COMMENT 1
[2024-09-10 09:00] VITALS: BP 105/55; TEMP 98.3; O2SAT 95
[2024-09-10 11:07] LABS: FREE KAPPA LT CHAINS SERUM 24.8 mg/L (3.3-19.4); FREE LAMBDA LT CHAIN SERUM 27.5 mg/L (5.7-26.3); KAPPA/LAMBDA RATIO SERUM 0.9 (0.26-1.65)
[2024-09-10 12:09] LABS: *ANTI-SCLERODERMA-70 AB <0.2 AI (0.0-0.9); *RNP ANTIBODIES <0.2 AI (0.0-0.9); *SJOGREN'S ANTI-SS-A <0.2 AI (0.0-0.9); *SJOGREN'S ANTI-SS-B <0.2 AI (0.0-0.9); *SMITH ANTIBODIES <0.2 AI (0.0-0.9); ANTI-DNA(DS) AB, QN 1 IU/mL (0-9); ANTI-NUCLEAR AB DIRECT Negative (Negative)
[2024-09-10] MEDS: ACETAMINOPHEN 325 MG TABLET PO PRN (14:01)
[2024-09-10 16:09] LABS: HIV-1 p24 ANTIGEN NON REACTIVE (NONREACTIVE); HIV-1/2 ANTIBODY NON REACTIVE (NONREACTIVE)
[2024-09-10] MEDS: FERROUS SULFATE 325 MG TABEC PO SCH (16:12)
[2024-09-10 16:13] VITALS: BP 88/33; TEMP 98.2; O2SAT 96
[2024-09-10 17:25] VITALS: BP 104/49; TEMP 98.3; O2SAT 94
[2024-09-11 05:27] LABS: BASOPHILS # (AUTO) 0.1 K/UL (0.0-0.2); BASOPHILS % (AUTO) 0.9 % (0.0-2.0); EOSINOPHILS # (AUTO) 0.6 K/uL (0.0-0.7); EOSINOPHILS % (AUTO) 9.3 % (0.0-7.0); HEMOGLOBIN 10.8 g/dL (10.9-14.3); MEAN CORPUSCULAR HEMOGLOBIN 30.7 uug (24.7-32.8); MEAN CORPUSCULAR HGB CONC 33 g/dL (32.3-35.6); MEAN CORPUSCULAR VOLUME 93.4 fL (75.5-95.3); MONOCYTES # (AUTO) 0.6 K/uL (0.1-1.30); MONOCYTES % (AUTO) 10.1 % (0.0-11.0); NEUTROPHILS % (AUTO) 63.7 % (38.5-71.5); PLATELET COUNT (AUTO) 144 K/uL (179-408); RED BLOOD CELL COUNT(AUTO) 3.53 MIL/uL (3.63-4.92); RED CELL DISTRIBUTION WIDTH 13.6 % (12.3-17.7); WHITE BLOOD COUNT (AUTO) 6.3 K/uL (3.8-11.8)
[2024-09-11 05:41] LABS: DIFFERENTIAL COMMENT 1
[2024-09-11] MEDS: GOLYTELY 4000 ML BOTTLE PO ONE (10:45)
[2024-09-11] MEDS: BISACODYL 5 MG TABLET.DR PO PRN (10:45)
[2024-09-11 11:02] VITALS: BP 118/40; TEMP 98.3; O2SAT 97
[2024-09-11 15:36] VITALS: BP 103/44; TEMP 98.8; O2SAT 97
[2024-09-11 18:00] VITALS: BP 130/52; TEMP 98.8; O2SAT 98
[2024-09-11 18:32] LABS: *OCCULT BLOOD STOOL NEGATIVE (NEGATIVE)
[2024-09-12 07:01] LABS: BASOPHILS # (AUTO) 0.1 K/UL (0.0-0.2); BASOPHILS % (AUTO) 0.9 % (0.0-2.0); EOSINOPHILS # (AUTO) 0.4 K/uL (0.0-0.7); EOSINOPHILS % (AUTO) 5.7 % (0.0-7.0); HEMATOCRIT 30.9 % (31.2-41.9); HEMOGLOBIN 10.5 g/dL (10.9-14.3); LYMPHOCYTES % (AUTO) 16.8 % (20.5-51.5); MEAN CORPUSCULAR HEMOGLOBIN 31.5 uug (24.7-32.8); MEAN CORPUSCULAR HGB CONC 34 g/dL (32.3-35.6); MONOCYTES # (AUTO) 0.6 K/uL (0.1-1.30); MONOCYTES % (AUTO) 9.9 % (0.0-11.0); NEUTROPHILS # (AUTO) 4.2 K/uL (1.8-8.9); NEUTROPHILS % (AUTO) 66.7 % (38.5-71.5); PLATELET COUNT (AUTO) 161 K/uL (179-408); RED BLOOD CELL COUNT(AUTO) 3.33 MIL/uL (3.63-4.92); RED CELL DISTRIBUTION WIDTH 13.5 % (12.3-17.7); WHITE BLOOD COUNT (AUTO) 6.2 K/uL (3.8-11.8)
[2024-09-12 07:12] LABS: DIFFERENTIAL COMMENT 1
[2024-09-12 11:11] VITALS: BP 103/67; TEMP 98.2; O2SAT 98
[2024-09-12] MEDS ORDERED: [UNRECOGNIZED DRUG - OTHER] IJ ONE (15:00)
[2024-09-12 15:28] VITALS: BP 111/48; TEMP 98.2; O2SAT 96
[2024-09-12 19:45] VITALS: BP 122/52; TEMP 98.7; O2SAT 97
[2024-09-12] MEDS: ZOLPIDEM 5 MG TABLET PO PRN (22:27)
[2024-09-13 05:06] VITALS: BP 103/44; TEMP 98.6; O2SAT 96
[2024-09-13 06:40] LABS: BASOPHILS # (AUTO) 0.1 K/UL (0.0-0.2); BASOPHILS % (AUTO) 0.8 % (0.0-2.0); EOSINOPHILS # (AUTO) 0.4 K/uL (0.0-0.7); EOSINOPHILS % (AUTO) 4.8 % (0.0-7.0); HEMATOCRIT 30.8 % (31.2-41.9); HEMOGLOBIN 10.4 g/dL (10.9-14.3); LYMPHOCYTES # (AUTO) 1.1 K/uL (0.8-4.8); LYMPHOCYTES % (AUTO) 14.7 % (20.5-51.5); MEAN CORPUSCULAR HEMOGLOBIN 31.4 uug (24.7-32.8); MEAN CORPUSCULAR HGB CONC 34 g/dL (32.3-35.6); MEAN CORPUSCULAR VOLUME 92.9 fL (75.5-95.3); MONOCYTES # (AUTO) 0.8 K/uL (0.1-1.30); NEUTROPHILS # (AUTO) 5.3 K/uL (1.8-8.9); NEUTROPHILS % (AUTO) 69.7 % (38.5-71.5); PLATELET COUNT (AUTO) 160 K/uL (179-408); RED BLOOD CELL COUNT(AUTO) 3.32 MIL/uL (3.63-4.92); RED CELL DISTRIBUTION WIDTH 13.5 % (12.3-17.7); WHITE BLOOD COUNT (AUTO) 7.5 K/uL (3.8-11.8)
[2024-09-13 07:04] LABS: DIFFERENTIAL COMMENT 1
[2024-09-13 11:20] VITALS: BP 128/53; TEMP 97.8; O2SAT 99
== END 2024-09-13 16:00 | disposition home or self-care (01) | DRG 281 ==
LOC: ER 10:30 → MEDSURG3 18:06
PROC: 0DBK8ZX Excision of Ascending Colon, Via Natural or Artificial Opening Endoscopic, Diagnostic (ICD-10-PCS; principal; 2024-09-12)
PROC: 3E0H8KZ Introduction of Other Diagnostic Substance into Lower GI, Via Natural or Artificial Opening Endoscopic (ICD-10-PCS; principal; 2024-09-12)
DX: C22.7 Other specified carcinomas of liver (principal); I81 Portal vein thrombosis; D61.818 Other pancytopenia; E87.6 Hypokalemia; I89.0 Lymphedema, not elsewhere classified; K59.00 Constipation, unspecified; F17.210 Nicotine dependence, cigarettes, uncomplicated; R11.2 Nausea with vomiting, unspecified
CPT/HCPCS: 36415; 71260; 74181; 82105; 82378; 83550; 83615; 83690; 83735; 84100; 84443; 85025; 85049; 85610; 85730; 86038; 86301; 86430; 86704; 86705; 86706; 86803; 87340; 87806; A4606; A4663; A9575; G0378; J1650; J2270; J2405; J3490; J7040; Q9967